=== PATIENT | female | born 1935 | race Caucasian/White ===

== ENCOUNTER → 2021-03-14 13:53 | Outpatient (CLI) | payer MEDICARE, SELFPAY ==
--- NOTE | ~2021-03-14 | XR_ITS ---
EXAMINATION: XR lumbar spine 2-3V DATE: 03/14/2021 14:49 INDICATION: Low back pain TECHNIQUE: Anteroposterior and lateral views of the lumbar spine, and cone-down lateral view of the l umbosacral junction were obtained. COMPARISON: MRI, 09/13/2014 FINDINGS: There is levocurvature of the lumbar spine. There is no fracture. There are 3 mm of unchang ed anterolisthesis of L4 on L5. Bone alignment is otherwise maintained. There is severe loss of inter vertebral disc space height from L2-3 through L5-S1. The vertebral body heights are normal. Small deg enerative osteophytes project from the anterior endplates of multiple vertebral bodies. There is mild to moderate facet osteoarthritis of the lower lumbar spine. IMPRESSION: 1. Moderate to severe spondylosis without acute findings or significant interval change. Reviewed, dictated and finalized at location A. IMPRESSION: 1. Moderate to severe spondylosis without acute findings or significant interva l change.
--- NOTE | ~2021-03-14 | XR_ITS ---
EXAMINATION: XR hip BI 2V w AP pelvis DATE: 03/14/2021 14:49 INDICATION: Bilateral hip pain TECHNIQUE: AP view the pelvis and two views of each hip were obtained. COMPARISON: 09/13/2014 FINDINGS: Bone alignment is normal. There is no fracture. There is mild osteoarthritis of the hips. M oderate osteitis pubis is noted. There are phleboliths of the pelvis. IMPRESSION: 1. Mild osteoarthritis of the hips without acute findings. Reviewed, dictated and finalized at location A.
== END ==
PROVIDERS: PCP Family Medicine; Visit Provider Family Medicine
DX: M16.0 Bilateral primary osteoarthritis of hip (principal); M47.816 Spondylosis without myelopathy or radiculopathy, lumbar region
CPT/HCPCS: 72100; 73521

== ENCOUNTER 2021-10-02 11:05 | Outpatient (CLI) | payer MEDICARE, SELFPAY ==
--- NOTE | ~2021-10-02 | XR_ITS ---
EXAMINATION: XR foot RT standing 2V DATE: 10/02/2021 12:31 INDICATION: Other specified abnormal immunological finding TECHNIQUE: Dorsoplantar and lateral views of the right foot were obtained. COMPARISON: None. FINDINGS: Diffuse osteopenia. Mild pes planus. No fracture. Polyarticular osteoarthritis, moderate severity at the naviculocuneiform joint as well as view of the tarsal metatarsal and interphalangeal joints and m ild at many of the remaining joints in the mid and forefoot. Subarticular lucencies along the distal navicular likely represent degenerative subchondral cysts. Small Achilles and plantar calcaneal spurs . Soft tissues are unremarkable. No definitive ankle joint effusion. IMPRESSION: 1. Mild to moderate polyarticular osteoarthritis in the mid and forefoot. Reviewed, dictated and finalized at location A. LLITE INSTRUCTION FACILITATOR
--- NOTE | ~2021-10-02 | XR_ITS ---
XR foot LT standing 2V DATE: 10/02/2021 12:31 INDICATION: Left foot pain TECHNIQUE: Standing AP and lateral views COMPARISON: None FINDINGS: There is diffuse osteopenia. There is mild plantar and posterior calcaneal enthesopathy. There is osteoarthritis at the first metatarsophalangeal joint. There is degenerative change at the tarsal and tarsal metatarsal joints. No fracture or dislocation, periosteal reaction or bone destruction. IMPRESSION: Osteopenia Mild plantar and posterior calcaneal enthesopathy Osteoarthritic changes Reviewed, dictated and finalized at location B. SIT PLANNING MANAGER
--- NOTE | ~2021-10-02 | XR_ITS ---
XR knee RT min 4V DATE: 10/02/2021 12:31 INDICATION: Right knee pain. Abnormal immunological findings TECHNIQUE: [place], lateral and standing AP and PA views COMPARISON: None FINDINGS: There is diffuse osteopenia. There is moderately prominent loss of height at the medial prominent joint space. There is periarticu lar spurring at all 3 compartments. There is chondrocalcinosis at the medial and lateral compartments. No fracture or dislocation, periosteal reaction or bone destruction. IMPRESSION: Osteopenia Tricompartment osteoarthritis, most pronounced at the medial compartment Chondrocalcinosis Reviewed, dictated and finalized at location B. OR VICE PRESIDENT & GENERAL COUNSEL
--- NOTE | ~2021-10-02 | XR_ITS ---
XR knee LT min 4V DATE: 10/02/2021 12:31 INDICATION: Left knee pain. Abnormal immunologic findings. TECHNIQUE: [place], lateral and standing AP and PA views COMPARISON: None FINDINGS: Diffuse osteopenia. No fracture or dislocation, periosteal reaction or bone destruction or joint effusion is detected. There is chondrocalcinosis at the medial and lateral compartments. There is severe loss of medial compartment joint space height. There is periarticular spurring of the patella. IMPRESSION: Osteopenia Osteoarthritis at the patellofemoral and particularly prominently at the medial compartment Chondrocalcinosis Reviewed, dictated and finalized at location B. DYER HELPER
--- NOTE | ~2021-10-02 | XR_ITS ---
XR hip BI 2V w AP pelvis DATE: 10/02/2021 12:31 INDICATION: Bilateral hip pain. Abnormal immunological findings. TECHNIQUE: AP pelvis. AP and lateral views of both hips. COMPARISON: None FINDINGS: Diffuse osteopenia. Levoscoliosis and multilevel degenerative disc disease of the lumbar spine. Osteitis pubis. Mild right hip and moderately severe left hip osteoarthritis. No fracture or bone destruction of the pelvis. No fracture or dislocation, avascular necrosis or bone destruction of either hip is detected. IMPRESSION: Bilateral hip osteoarthritis, more prominent on the left Osteitis pubis Diffuse osteopenia Levoscoliosis and multilevel degenerative disc disease of the lumbar spine Reviewed, dictated and finalized at location B. ER SCALLOP
--- NOTE | ~2021-10-02 | XR_ITS ---
XR lumbar spine min 4V DATE: 10/02/2021 12:31 INDICATION: Low back pain. Abnormal immunologic findings. TECHNIQUE: AP, lateral, bilateral oblique views, coned lateral lumbosacral view COMPARISON: 02/22/2021 lumbar spine FINDINGS: There is diffuse osteopenia. There is mild levoscoliosis of the lumbar spine. There is degenerative disc disease throughout the lumbar and lumbosacral area, moderate at L1-2, minh re at the remaining lumbar and lumbosacral interspaces. The lumbar pedicles are intact. No fracture or bone destruction or spondylosis. There is degenerative change at the apophyseal joints with associated grade 1 anterolisthesis at the L4-5 level. The sacroiliac joints are intact. IMPRESSION: Diffuse osteopenia Mild levoscoliosis Multilevel degenerative disc disease Grade 1 anterolisthesis at L4-5 due to degenerative change at the apophyseal joints Reviewed, dictated and finalized at location B. HOP IMPRESSION: Diffuse osteopenia Mild levoscoliosis Multilevel degenerative disc disease Grade 1 anterolisthesis at L4-5 due to degenerative change at the apophyseal reyna ints
--- NOTE | ~2021-10-02 | XR_ITS ---
XR hand BI arthritis min 3V DATE: 10/02/2021 12:31 INDICATION: Abnormal immunological findings TECHNIQUE: 4 views of each hand COMPARISON: None FINDINGS: Right hand: Diffuse osteopenia. Chondrocalcinosis at the triangular cartilage. There is polyarticular osteoarthritis including triscaphe, first carpometacarpal, first and second me tacarpophalangeal joints and particularly severe joint space narrowing and spurring at the third meta carpophalangeal joint. There is osteoarthritic change at multiple interphalangeal joints, particularl y all DIP joints. No fracture or dislocation, periosteal reaction or bone destruction of the right hand. Left hand: Diffuse osteopenia. There is polyarticular osteoarthritis, involving triscaphe, first carpometacarpal, second and particu larly at third metacarpophalangeal and multiple interphalangeal joints, particularly the distal inter phalangeal joints. There is increased density of the lunate bone, decrease in height of the lunate bone and proximal liya ration of the capitate, consistent with stage III Kienbock's disease. No fracture, dislocation, periosteal reaction or bone destruction of the left hand is noted otherwise . 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 Reviewed, dictated and finalized at location B. ARY CARE PROVIDER
[2021-10-02 11:51] LABS: Basophils Percent Auto 0.6 % (0.2-1.2); Eosinophils Absolute Auto 0.1 K/mm3 (0-0.3); Eosinophils Percent Auto 1.7 % (0-4.4); Hematocrit 43.4 % (37.0-47.0); Hemoglobin 13.7 g/dL (12.0-15.0); Immature Granulocyte Absolute 0.02 K/mm3 (0.00-0.031); Immature Granulocyte Percent A 0.3 % (0-0.5); Lymphocytes Absolute Auto 1.92 K/mm3 (0.9-3.2); Lymphocytes Percent Auto 26.4 % (18.3-44.2); Mean Corpuscular HGB Conc 31.6 g/dl (32-36); Mean Corpuscular Volume 88.6 fl (80-100); Mean Platelet Volume 10.4 fl (7.4-10.4); Monocytes Absolute Auto 0.7 K/mm3 (0.1-0.6); Monocytes Percent Auto 9.2 % (2.6-8.5); Neutrophils Absolute Auto 4.5 K/mm3 (1.3-6.7); Neutrophils Percent Auto 61.8 % (45.5-73.1); Platelet Count Result 195 k/mm3 (150-375); Red Cell Distribution Width 14.2 % (11.5-14.5); White Blood Count 7.3 K/mm3 (4.5-10.0)
[2021-10-02 12:05] LABS: Alanine Aminotransferase 25 U/L (4-35); Albumin Level 4.4 g/dL (3.5-5.1); Alkaline Phosphatase 81 U/L (38-126); Anion Gap 8 mmol/L (8-16); Aspartate Amino Transferase 35 U/L (14-36); Bilirubin,Total 0.3 mg/dL (0.2-1.3); Blood Urea Nitrogen 20 mg/dL (7-17); CRP < 0.5 mg/dL (<1.0); Calcium 9.3 mg/dL (8.4-10.2); Carbon Dioxide 25 mmol/L (22-30); Chloride 104 mmol/L (98-107); Creatine Kinase 74 U/L (30-135); Estimated Glomerular Filt Rate > 60; Glucose 102 mg/dL (65-110); Potassium 4.2 mmol/L (3.4-5.0); Sodium 137 mmol/L (137-145); Uric Acid 5.6 mg/dL (2.5-7.5)
[2021-10-02 12:10] LABS: Complement C3 119 mg/dL (88-165)
[2021-10-02 12:25] LABS: Vitamin D 25 Hydroxy 35.6 ng/mL
[2021-10-02 12:25] LABS: Erythrocyte Sedimentation Rate 15 mm/hr (0-20)
[2021-10-05 06:18] LABS: Aldolase 5.8 U/L (<=8.1)
[2021-10-05 22:49] LABS: Anti Cyclic Citrullinated Pept <16 Units (<20)
[2021-10-06 05:01] LABS: Lupus dRVVT 1:1 Mix Interpreta Not Indicated; Lupus dRVVT Screen 31 sec (<=45); PTT-LA Screen 30 sec (<=40)
[2021-10-08 12:01] LABS: SM Antibody <1.0; SM/RNP Antibody <1.0; SS-A <1.0; SS-B <1.0
== END 2021-10-02 11:06 | disposition home or self-care (01) ==
PROVIDERS: PCP Family Medicine; Visit Provider Internal Medicine
DX: R76.8 Other specified abnormal immunological findings in serum (principal); Z71.89 Other specified counseling; Z79.899 Other long term (current) drug therapy; R89.4 Abnormal immunological findings in specimens from other organs, systems and tissues; M19.071 Primary osteoarthritis, right ankle and foot; M85.872 Other specified disorders of bone density and structure, left ankle and foot; M77.32 Calcaneal spur, left foot; M19.072 Primary osteoarthritis, left ankle and foot; M19.041 Primary osteoarthritis, right hand; M19.042 Primary osteoarthritis, left hand; M85.861 Other specified disorders of bone density and structure, right lower leg; M85.862 Other specified disorders of bone density and structure, left lower leg; M17.0 Bilateral primary osteoarthritis of knee; M16.0 Bilateral primary osteoarthritis of hip; M85.88 Other specified disorders of bone density and structure, other site; M85.851 Other specified disorders of bone density and structure, right thigh; M85.852 Other specified disorders of bone density and structure, left thigh; M51.36 Other intervertebral disc degeneration, lumbar region
CPT/HCPCS: 36415; 72110; 73130; 73521; 73564; 73620; 80053; 82085; 82306; 82550; 84550; 85025; 85613; 85652; 85730; 86140; 86160; 86200; 86225; 86235

== ENCOUNTER 2022-01-23 09:30 | Outpatient (RCR) | payer MEDICARE, SELFPAY ==
--- NOTE | 2021-12-27 13:10 | PTOPEVAL ---
PHYSICAL THERAPY INITIAL EVALUATION. Thank you for referring Alea Metz to [facility].? The patient is scheduled to be seen for therapy?2x/week for 4 weeks. Please review, sign, date and return this plan of care SAIDA. I agree with and certify that the following plan of care is medically necessary. Referring Physician Date Attending Provider: Janeen Katz MD Evaluation Information Diagnosis Spondolysis, L hip pain Onset chronic Subjective Information Pt states she enjoying working Query Text:As Reported By Patient/ in the yard. She states she Family does not have sharp pains in her back but when she bends forward for too long it hurts to sit back up again. Pt states she is limit in the amount of time she can walk and the pace. She states when she has been sitting for too long she has to stand for a moment after standing prior to walking to let her feet get under her . Pt states she rides a stationary bike daily for 10-30 minutes. Prior Level of Function Pain Assessment Self Report Pain Assessment Lower Back Reported Pain Level 3 Pain Description Aching,Tightness,With Movement Pain Frequency Chronic,Intermittent Lowest Pain Intensity 2 Greatest Pain Intensity 8 Pain Aggravating Factors Bending,Lifting,Prolonged Position,Walking,Weight Bearing/Standing Lumbar ROM Lumbar Flexion Active Ankle Lumbar Extension (0-40) 5 Lateral Flexion 1 in above lateral knee joint Query Text:Active Hands to: line laura - reports of increase hip pain on the L Lateral Rotation Right (0-45) 15 Lateral Rotation Left (0-45) 25 Lower Extremity Range of Motion General Lower Extremity Range of Motion WFL/Left,WFL/Right Gross Lower Extremity Range of Motion pain reported with max hip Comments flexion Lower Extremity Muscle Strength Testing General Lower Extremity Strength WFL/Left,WFL/Right Gross Lower Extremity Strength L hip flexion 4/5 R hip flexion 4+/5 L hip extension 2+/5 R hip extension 4/5 Laura hip abduction 2+/5 Muscle Length Testing Two-Joint Hip Flexor Shortened Muscles Short (R) Iliopsoas,Short (L) Il
--- NOTE | 2022-01-15 16:58 | PCPTNOTE ---
Patient called & cancelled scheduled appointment this date due to being unable to make it.
--- NOTE | 2022-01-23 10:08 | PTOPEVAL ---
PHYSICAL THERAPY PROGRESS REPORT AND DISCHARGE SUMMARY. Thank you for referring Alea Metz to [facility].? The patient is to be discharged from therapy at this time. Please review, sign, date and return this plan of care SAIDA. I agree with and certify that the following plan of care is medically necessary. Referring Physician Date Attending Provider: Janeen Katz MD Evaluation Information Diagnosis Spondylolysis, L hip pain Onset chronic Subjective Information Pt states she her hip pain is Query Text:As Reported By Patient/ very dependent on what she has Family been doing that day. She states she hurt her R knee standing up from a chair, she states it feels like a pulled muscle. Pain Assessment Self Report Pain Assessment Right Leg(s) Reported Pain Level 2 Pain Description Aching,Tightness Greatest Pain Intensity 6 Lower Back Reported Pain Level 0 Cervical and Lumbar ROM Lumbar ROM Lumbar Flexion Active Ankle Lumbar Extension (0-40) 15 Lateral Flexion 1 in above lateral knee joint Query Text:Active Hands to: line laura Lateral Rotation Right (0-45) 30 Lateral Rotation Left (0-45) 30 Lower Extremity Muscle Strength Testing General Lower Extremity Strength WFL/Left,WFL/Right Gross Lower Extremity Strength L hip flexion 4/5 R hip flexion 4+/5 L hip extension 3/5 R hip extension 3-/5 L hip abduction 3/5 R hip abduction 3-/5 laura knee flexion/extension 4/5 Muscle Length Testing Two-Joint Hip Flexor Shortened Muscles Short (R) Iliopsoas,Short (L) Iliopsoas Left Hamstring Length -30 Right Hamstring Length -42 Balance Assessment Time Up Go (TUG) Timed Up and Go Test (TUG) (Seconds) 13 Assistive Devices None Comments Initially: 15s 6/8/22: 13s 5 Time Sit to Stand 5 Time Sit to Stand Comments deferring today due to knee pain Gait Assessment Gait Pattern Weaving Gait Gait Pattern Observed Excessive Knee Flex - Left, Excessive Knee Flex - Right,No Heel Strike - Left,No Heel Strike - Right,Trunk Flexed, Trunk Lateral Lean - Left Other Gait Observations lack of knee terminal extension laura, decreased gait speed, one LOB, in-t
== END 2022-01-24 11:36 | disposition home or self-care (01) ==
LOC: ANHPT 09:30
PROVIDERS: PCP Family Medicine; Visit Provider Internal Medicine
DX: M47.816 Spondylosis without myelopathy or radiculopathy, lumbar region (principal)
CPT/HCPCS: 97110; 97112; 97161; 97530

== ENCOUNTER 2022-07-18 11:40 | Outpatient (CLI) | payer MEDICARE, SELFPAY ==
--- NOTE | ~2022-07-18 | XR_ITS ---
XR sacrum coccyx min 2V DATE: 07/18/2022 12:11 INDICATION: Left hip, sacrum and coccyx pain. No injury. TECHNIQUE: AP, angled AP and lateral views COMPARISON: None FINDINGS: Degenerative disc disease and included L4-5 and L5-S1 levels. There is degenerative change at the sacroiliac joints. No erosive change or ankylosis. No fracture or bone destruction of the sacrum or coccyx is detected. Osteitis pubis. Bilateral hip osteoarthritis, more severe on the left. IMPRESSION: Degenerative change at the sacroiliac joints; no erosive change or ankylosis Bilateral degenerative disease of lumbar and lumbosacral spine Osteitis pubis Bilateral hip osteoarthritis, more severe on the left Reviewed, dictated and finalized at location B. AFLUX OPERATOR
--- NOTE | ~2022-07-18 | XR_ITS ---
XR hip LT 2V w AP pelvis DATE: 07/18/2022 12:11 INDICATION: Left hip pain. No injury. TECHNIQUE: AP pelvis. AP and lateral views of left hip. COMPARISON: 07/18/2022 sacrum and coccyx 10/02/2021 AP pelvis and bilateral hips FINDINGS: There is degenerative disc disease of prominent degree at L3-4, L4-5 and L5-S1. Osteitis pubis. Normal alignment at the pubic symphysis and sacroiliac joints. Moderately prominent right hip and moderately severe left hip osteoarthritis. No pelvic fracture or bone destruction. No fracture or dislocation, avascular necrosis or bone destruction of the left hip. IMPRESSION: Bilateral hip osteoarthritis, more severe on the left Osteitis pubis Multilevel degenerative disc disease of the lumbar spine Little interval change since 10/02/2021 Reviewed, dictated and finalized at location B. IFIED OPHTHALMIC TECHNOLOGIST
== END 2022-07-18 11:41 | disposition home or self-care (01) ==
LOC: ANHIMG 11:43
PROVIDERS: PCP Family Medicine; Visit Provider Family Medicine
DX: M53.3 Sacrococcygeal disorders, not elsewhere classified (principal); M25.552 Pain in left hip; M51.36 Other intervertebral disc degeneration, lumbar region; M86.8X8 Other osteomyelitis, other site; M16.0 Bilateral primary osteoarthritis of hip
CPT/HCPCS: 72220; 73502

== ENCOUNTER 2022-12-02 11:48 | Outpatient (CLI) | payer MEDICARE, SELFPAY ==
[2022-12-02 12:14] LABS: Hematocrit 43.7 % (37.0-47.0); Hemoglobin 13.8 g/dL (12.0-15.0); Mean Corpuscular HGB Conc 31.6 g/dl (32-36); Mean Corpuscular Hemoglobin 27.5 pg (26-34); Mean Corpuscular Volume 87.1 fl (80-100); Mean Platelet Volume 10.1 fl (7.4-10.4); Platelet Count Result 228 k/mm3 (150-375); Red Blood Count 5.02 M/mm3 (4.2-5.4); Red Cell Distribution Width 14.3 % (11.5-14.5); White Blood Count 7.2 K/mm3 (4.5-10.0)
[2022-12-02 12:29] LABS: Alanine Aminotransferase 26 U/L (6-35); Albumin Level 4.7 g/dL (3.5-5.1); Alkaline Phosphatase 75 U/L (38-126); Anion Gap 6 mmol/L (8-16); Aspartate Amino Transferase 33 U/L (14-36); Bilirubin,Total 0.5 mg/dL (0.2-1.3); Blood Urea Nitrogen 20 mg/dL (7-17); CRP 0.7 mg/dL (<1.0); Calcium 9.3 mg/dL (8.4-10.2); Carbon Dioxide 33 mmol/L (22-30); Chloride 101 mmol/L (98-107); Estimated Glomerular Filt Rate > 60; Glucose 90 mg/dL (65-110); Potassium 4.5 mmol/L (3.4-5.0); Sodium 140 mmol/L (137-145)
[2022-12-02 13:00] LABS: Erythrocyte Sedimentation Rate 19 mm/hr (0-20)
[2022-12-02 13:09] LABS: Appearance Urine Clear (Clear); Bacteria Urine None Seen /hpf; Bilirubin Urine Negative (Negative); Blood Urine Negative (Negative); Color Urine Yellow (Yellow); Glucose Urine UA Negative (Negative); Ketones Urine Negative (Negative); Leukocyte Esterase Ur 1+ LEU/UL (Negative); Need Manual Microscopic Reviewed; Nitrate Urine Negative (Negative); Non Pathogenic Casts 0-2; Protein Urine Negative (Negative); RBC Urine 0-2 /hpf (0-2); Specific Grav Ur 1.018 (1.001-1.035); Squamous Epithelial Cell Urine None seen /hpf (Few); Urobilinogen Urine 0.2 mg/dL (<2.0); WBC Urine 0-5 /hpf
[2022-12-02 13:11] LABS: Add Urine Microscopic? YES
== END 2022-12-02 11:49 | disposition home or self-care (01) ==
PROVIDERS: PCP Family Medicine; Visit Provider Internal Medicine
DX: M25.9 Joint disorder, unspecified (principal); M19.90 Unspecified osteoarthritis, unspecified site; M35.3 Polymyalgia rheumatica
CPT/HCPCS: 36415; 80053; 81001; 85027; 85652; 86140

== ENCOUNTER 2023-01-07 09:35 | Outpatient (CLI) | payer MEDICARE, SELFPAY ==
[2023-01-13 13:40] LABS: ANCA Screen Negative (Negative); Myeloperoxidase Ab <1.0 AI (<1.0); Proteinase-3 Ab <1.0 AI (<1.0); S cerevisiae Ab (IgA) 8.7 U (<=20.0); S cerevisiae Ab (IgG) 15.7 U (<=20.0)
== END 2023-01-07 09:36 | disposition home or self-care (01) ==
PROVIDERS: PCP Family Medicine; Visit Provider Internal Medicine Gastroenterology
DX: R19.7 Diarrhea, unspecified (principal)
CPT/HCPCS: 36415; 86036; 86671

== ENCOUNTER 2023-01-08 09:03 | Outpatient (CLI) | payer MEDICARE, SELFPAY ==
[2023-01-17 18:58] LABS: Calprotectin, Stool 40 mcg/g
== END 2023-01-08 09:04 | disposition home or self-care (01) ==
PROVIDERS: PCP Family Medicine; Visit Provider Internal Medicine Gastroenterology
DX: R19.7 Diarrhea, unspecified (principal)
CPT/HCPCS: 83993